=== PATIENT | female | born 1955 | race Caucasian/White ===

== ENCOUNTER 2019-02-06 08:43 | Emergency (ER) | payer BC, MEDICARE ==
[2019-02-06 08:55] VITALS: BP 144/91
--- NOTE | 2019-02-06 09:44 | UC ---
UC General HPI - History of Current Complaint Chief Complaint: UCRash Stated Complaint: RASH Hx Obtained From: Patient Pain Intensity: 4 - Allergy/Home Medications Allergies/Adverse Reactions: Allergies Allergy/AdvReac Type Severity Reaction Status Date / Time No Known Allergies Allergy Verified 02/06/19 08:55 PMH/Surg Hx/FS Hx/Imm Hx - Surgical History Surgical History: Yes Surgery Procedure, Year, and Place: hernia repair. tonsillectomy - Family History Known Family History: Positive: None - Social History Alcohol Use: Daily Substance Use Type: None Smoking Status (MU): Former Smoker When Did the Patient Quit Smoking/Using Tobacco: 34 yrs ago Physical Exam Vital Signs: Initial Vital Signs Temp 98 F 02/06/19 08:51 Pulse 96 02/06/19 08:51 Resp 18 02/06/19 08:51 BP 144/91 02/06/19 08:51 Pulse Ox 100 02/06/19 08:51 Discharge ED - Discharge Plan Referrals: Astrid Acosta MD [Primary Care Provider] -
--- NOTE | 2019-02-06 09:54 | UC ---
Skin Complaint HPI - HPI Summary HPI Summary: 63 yo female presents with rash. She tells me that for years she has used the same deodorant, but it recently went off the market. 4 days ago she tried a new deodorant and 2 days later developed a red, burning, itching rash under both of her arms. She applied OTC natural oils with no relief. Denies edema, throat swelling, sob, wheezing. - History of Current Complaint Chief Complaint: UCRash Time Seen by Provider: 02/06/19 09:54 Stated Complaint: RASH Onset/Duration: Sudden Onset Onset Severity: Mild Current Severity: Mild Pain Intensity: 4 Pain Scale Used: 0-10 Numeric - Allergy/Home Medications Allergies/Adverse Reactions: Allergies Allergy/AdvReac Type Severity Reaction Status Date / Time No Known Allergies Allergy Verified 02/06/19 08:55 PMH/Surg Hx/FS Hx/Imm Hx - Additional Past Medical History Additional PMH: None - Surgical History Surgical History: Yes Surgery Procedure, Year, and Place: hernia repair. tonsillectomy - Family History Known Family History: Positive: None - Social History Lives: With Family Alcohol Use: Daily Substance Use Type: None Smoking Status (MU): Former Smoker When Did the Patient Quit Smoking/Using Tobacco: 34 yrs ago Review of Systems All Other Systems Reviewed And Are Negative: No Constitutional: Positive: Negative Skin: Positive: Rash Eyes: Positive: Negative ENT: Positive: Negative Respiratory: Positive: Negative Cardiovascular: Positive: Negative Gastrointestinal: Positive: Negative Neurological: Positive: Negative Psychological: Positive: Negative Physical Exam - Summary Physical Exam Summary: GENERAL: NAD. WDWN. No pain distress. SKIN: B/L Axilla: mildly erythematous dry appearing irritation. No open wounds, drainage, abscess, or streaking. NECK: Supple. Nontender. No lymphadenopathy. CHEST: No accessory muscle use. Breathing comfortably and in no distress. CV: Pulses intact. Cap refill <2seconds NEURO: Alert. PSYCH: Age appropriate behavior. Triage Information Reviewed: Yes Vital Signs: Initial Vital Signs Temp 98 F 02/06/19 08:51 Pulse 96 02/06/19 08:51 Resp 18 02/06/19 08:51 BP 144/91 02/06/19 08:51 Pulse Ox 100 02/06/19 08:51 Vital Signs Reviewed: Yes Course/Dx - Course Course Of Treatment: Contact dermatitis. - Diagnoses Provider Diagnosis: Contact dermatitis Discharge ED - Sign-Out/Discharge Documenting (check all that apply): Patient Departure All imaging exams completed and their final reports reviewed: No Studies - Discharge Plan Condition: Stable Disposition: HOME Prescriptions: Triamcinolone 0.1% CREAM (NF) [Kenalog 0.1% Cream (NF)] 1 applic TOPICAL BID #1 tube Patient Education Materials: Contact Dermatitis (ED) Referrals: Astrid Acosta MD [Primary Care Provider] - Additional Instructions: If you develop a fever, shortness of breath, chest pain, new or worsening symptoms - please call your PCP or go to the ED immediately. Your blood pressure was high at todays visit. Please see your primary provider within 4 weeks for recheck and re-evaluation. Use the cream twice a day for 5-7 days. Stop applying all other creams/lotions/ oils - Billing Disposition and Condition Condition: STABLE Disposition: Home
== END 2019-02-06 10:15 | disposition home or self-care (01) ==
LOC: UCEAST 08:43
DX: L25.0 Unspecified contact dermatitis due to cosmetics (principal); Z87.891 Personal history of nicotine dependence
CPT/HCPCS: 99212; G0463